=== PATIENT | female | born 1970 | race Caucasian/White ===

== ENCOUNTER 2022-12-05 14:53 | Emergency (ER) | payer OTHER, SELFPAY ==
--- NOTE | ~2022-12-05 | XR_ITS ---
EXAM: XR foot LT min 3V DATE: 12/05/2022 15:18 HISTORY: [facility]. ATTN: 3RD TOE. BRUISING.PAIN RADIATES UP FOOT . COMPARISON: None available. FINDINGS: Normal mineralization. No fracture or dislocation. Small ossified projection medially and laterally off the distal fourth tarsal. Mild degenerative change at the first MTP joint. Achilles and plantar enthesopathy. No erosion or periosteal change. Soft tissues within normal limits. IMPRESSION: No acute osseous finding in the left foot. Small osteochondromas or other exostoses (both typically benign lesions) off the distal left fourth m etatarsal, which can be a source of chronic pain in some patients due to mechanical effect on adjacen t structures. Reviewed, dictated and finalized at location K. IMPRESSION: No acute osseous finding in the left foot. Small osteochondromas or other exostoses (both typically benign lesions) off th e distal left fourth metatarsal, which can be a source of chronic pain in some patients due to mechanical effect on adjacent structures.
[2022-12-05 15:02] VITALS: BP 152/76; PULSE 72; RESP 20; TEMP 36.8; O2SAT 100
[2022-12-05 15:09] VITALS: BP 152/76; PULSE 72; RESP 20; TEMP 36.8; O2SAT 100
--- NOTE | 2022-12-05 15:16 | ED.LOWEXIN ---
HPI - Extremity Injury (Lower) General Chief Complaint: Extremity Injury, Lower Stated Complaint: Left toe injury History of Present Illness HPI Narrative: Pt is a 52 y/o female, presents to with an area of ecchymosis to the left 3rd toe, uncertain of how she injured the toe but does mention stubbing her toes all the time. She has hx of prior fracture of the 4th MT in the past, requiring ORIF and she became concerned this bruising could be related. She denies any other associated symptoms or modifying factors. Related Data Home Medications Medication Instructions Recorded Confirmed empagliflozin 10 mg tablet 10 mg PO DAILY 12/05/22 12/05/22 (Jardiance) Allergies Allergy/AdvReac Type Severity Reaction Status Date / Time dye contrast Allergy Rash Uncoded 12/05/22 15:06 Review of Systems Constitutional: Comments: denies fevers or chills Musculoskeletal: Comments: REFER TO HPI Exam Const: General: healthy appearing, no acute distress and alert Orientation/consciousness: patient oriented x3 Limitations: no limitations HENMT: Head: normal to inspection Eyes: Conjunctivae: conjunctivae normal EOM: EOMs intact bilaterally Neck: Neck: normal visual inspection and no meningeal signs Resp: Effort & Inspection: normal respiratory effort Cardio: Rate: regular rate Rhythm: regular rhythm Skin: Other: Pt has ecchymosis to the left 3rd toe, purple in color, without nail plate injury. Distal PMS intact. No TTP over the MT, proximal midfoot or ankle. Course Course Emergency Course: Imaging unremarkable for acute findings of the left foot/toe. There is evidence of trauma with ecchymosis present. Plantar foot is unremarkable on exam, suggesting trauma to the dorsal aspect of the toe at some point recently. Plan supportive care, michael tape the toe PRN, supportive and protective shoes, FU with established graduate teacher education if pain is not resolving as the area of ecchymosis resolves. Pt is agreeable with plan. Level of Care: Express Care Visit (32107) Vital Signs Vital signs: Vital Signs Temperature 36.8 C 12/05/22 15:02 Pulse Rate 72 12/05/22 15:02 Respiratory Rate 20 12/05/22 15:02 Blood Pressure 152/76 H 12/05/22 15:02 Pulse Oximetry 100 12/05/22 15:02 Oxygen Delivery Room Air 08/14/23 15:02 Temperature 36.8 C 12/05/22 15:09 Pulse Rate 72 12/05/22 15:09 Respiratory Rate 20 12/05/22 15:09 Blood Pressure 152/76 H 12/05/22 15:09 Pulse Oximetry 100 12/05/22 15:09 Oxygen Delivery Room Air 12/05/22 15:09 MDM - Extremity Injury (Lower) MDM Narrative Medical decision making narrative: imaging unremarkable for acute findings. FU with podiatry, conservative therapy Differential Diagnosis Differential diagnosis: Likely ankle sprain and strain and fracture of toe Discharge Plan Discharge Clinical Impression: Contusion of toe of left foot Qualifiers: Encounter type: initial encounter Toe: lesser toe Damage to nail status: without damage Qualified Code(s): S90.122A - Contusion of left lesser toe(s) without damage to nail, initial encounter Patient Disposition: Home, Self-Care Condition: Stable Instructions: Antibiotic Form, Foot Contusion (ED) Additional Instructions: REST, ICE THE AREA OFF AND ON FOR 2-3 DAYS, TAKE MOTRIN FOR PAIN TOLERATED. WEAR SUPPORTIVE SHOES OR MICHAEL TAPE THE TOE FOR COMFORT. FOLLOW UP WITH PODIATRY IN 10-14 DAYS IF SYMPTOMS ARE NOT RESOLVING. Prescriptions: No Action Jardiance 10 mg tablet 10 mg PO DAILY Follow-up/Referrals: PHYSICIAN NOT ON STAFF,NONSTAFF [Primary Care Provider] - Time of Disposition: 15:49
== END 2022-12-05 15:54 | disposition home or self-care (01) ==
PROVIDERS: Emergency Provider Nurse Practitioner Family
DX: S90.122A Contusion of left lesser toe(s) without damage to nail, initial encounter (principal); X58.XXXA Exposure to other specified factors, initial encounter
CPT/HCPCS: 73630; 99213; G0463